=== PATIENT | male | born 1985 | race African-American/Black ===

== ENCOUNTER 2025-03-20 14:26 | Emergency (ER) | payer MEDICAID, SELFPAY ==
--- OUTSIDE RECORDS SUMMARY | 2025-02-08 06:00 | XMS_ITS ---
Author Organization [facility] Address [address] [place] [address] Care Team Providers Care Business Law Professor Name Role Phone Wanda Velez Primary Care Provider Jimi Olson [phone] REASON FOR VISIT routine lab work Social History Sex Assigned At : Social History Observation Description Sex Assigned At Male Encounters Encounter Location Date Provider Diagnosis [address] [place] [address] 02/08/2025 Jimi Olson Plan Of Treatment No Information Progress Notes * Jordan DEMARCODOB:1985 (39 yo M)Acc No.[id number]:02/08/2025 UNLOCKED PROGRESS NOTE Patient: Jordan BENITEZ Provider: Marky Olson APN :1985 A ge:39 Y S ex:Male Date:02/08/2025 Address:[address] [place], [place] [id number] Pcp:Wanda Velez Subjective: * Chief Complaints: * 1 . Routine lab work. * Medical History: Objective: * Vitals: Assessment: Plan: * Treatment: * * Electronic signature of Vignesh Olson on 03/20/2025 at 02:45 PM CDT Sign off status: Pending * Provider: Marky Olson APN Date: 0 02/08/2025 Generated for Bibiana lund/Rory/Yomaira on: 1 02:45 PM CDT
--- OUTSIDE RECORDS SUMMARY | 2025-02-09 08:00 | XMS_ITS ---
Author Organization [facility] Address [address] [place] [address] Care Team Providers Care Buyer Broker Name Role Phone Wanda Velez Primary Care Provider [phone] REASON FOR VISIT CRU Admit Eval Social History Sex Assigned At : Social History Observation Description Sex Assigned At Male Encounters Encounter Location Date Provider Diagnosis [address] [place] [address] 02/09/2025 Wanda Velez Plan Of Treatment No Information Progress Notes * Jordan DEMARCODOB:1985 (39 yo M)Acc No.[id number]:02/09/2025 UNLOCKED PROGRESS NOTE Patient: Blanca TINOCO Jordan Provider: Melody Velez DNP, REBECCA-PRISCILLA, [employer] FORMER :1985 A ge:39 Y S ex:Male Date:02/09/2025 Address:[address] [place], [place] [id number] Subjective: * Chief Complaints: * 1 . CRU Admit Eval. * Medical History: Objective: * Vitals: Assessment: Plan: * Treatment: * * Electronic signature of Valencia Velez on 03/20/2025 at 02:45 PM CDT Sign off status: Pending * Provider: Melody Velez DNP, REBECCA-BC, [employer] FORMER Date: 0 02/09/2025 Generated for Printing/Faxing/eTransmitting on: 1 02:45 PM CDT
--- OUTSIDE RECORDS SUMMARY | 2025-02-10 08:00 | XMS_ITS ---
[facility] Organization [facility] Address [address] [place] [address] Care Team Providers Care Business Risk Analyst Name Role Phone Wanda Velez Primary Care Provider [phone] Jimi Olson [phone] REASON FOR VISIT Establish PCP Social History Sex Assigned At : Social History Observation Description Sex Assigned At Male Encounters Encounter Location Date Provider Diagnosis [place] [address] [facility] [place] [address] 02/10/2025 Jimi Olson Plan Of Treatment No Information Progress Notes * Jordan DEMARCODOB:1985 (39 yo M)Acc No.[id number]:02/10/2025 UNLOCKED PROGRESS NOTE Progress Notes Patient: Jordan BENITEZ Provider: Marky Olson APN :1985 A ge:39 Y S ex:Male Date:02/10/2025 Address:[address] [place], [place] [id number] Pcp:Wanda Velez Subjective: * Chief Complaints: * 1 . Establish PCP. * Medical History: Objective: * Vitals: Assessment: Plan: * Treatment: * * Electronic signature of Vignesh Olson on 03/20/2025 at 02:45 PM CDT Sign off status: Pending * Provider: Marky Olson APN Date: 0 02/10/2025 Generated for Bibiana lund/Rory/Yomaira on: 1 02:45 PM CDT
--- NOTE | ~2025-03-20 | XR_ITS ---
EXAMINATION: XR tibia fibula LT 2V, 03/20/2025 15:30 CDT HISTORY: infection COMPARISON: No comparisons available. Findings: No acute fracture or malalignment. No significant degenerative changes. Soft tissues unremarkable. Impression: No acute fracture or malalignment. Reviewed, dictated and finalized at location P. Impression: No acute fracture or malalignment.
[2025-03-20 14:30] VITALS: BP 142/80; PULSE 128; RESP 18; TEMP 37.1; O2SAT 100
--- NOTE | 2025-03-20 14:40 | ED.GENADULT ---
HPI - General Adult General Chief complaint: Unspecified Stated complaint: I think I have hypothermia Time Seen by Provider: 03/20/25 14:31 History of Present Illness HPI narrative: 39-year-old male presenting to the emergency department with left lower leg redness and pain. Patient states he is homeless and been outside for last 2 months. States he has been having subjective chills and pain in his left leg. Notes that he had some redness and warmth but does not remember any precipitating injury or cut/bug bite. Has been sleeping outside. Does not take any medications but states he has no chronic medical conditions aside from PTSD. Denies any SI/HI this time. Related Data Allergies Allergy/AdvReac Type Severity Reaction Status Date / Time No Known Allergies Allergy Verified 03/20/25 14:45 Review of Systems Review of Systems: As reviewed above in HPI Exam Narrative: GENERAL: [Well-appearing, well-nourished, and in no acute distress.] HEAD: [Normocephalic, atraumatic.] EYES: [PERRLA and EOMI.] ENT: Nares clear, no rhinorrhea or epistaxis. Mucous membranes moist. NECK: Supple. CHEST: [Clear to auscultation. No respiratory distress.] HEART: [Regular rate and rhythm]. No murmur heard. [Normal peripheral pulses.] ABDOMEN: [Soft, nondistended], [nontender], [No rigidity or guarding] EXTREMITIES: Left lower extremity has redness and erythema with tenderness to palpation and some warmth but no induration or abscess formation. No drainage or purulence. No open lesions or wounds. No obvious cuts or bug bites between the digits or the foot. 2+ dorsalis pedis pulse. Full range of motion ambulatory. SKIN: Warm, dry, no rash. NEURO: [No focal deficits]. Alert and oriented [x3.] PSYCH: [Normal mood and affect.] Course Vital Signs Vital signs: Vital Signs Temperature 37.1 C 03/20/25 14:30 Pulse Rate 128 H 03/20/25 14:30 Respiratory Rate 18 03/20/25 14:30 Blood Pressure 142/80 H 03/20/25 14:30 Pulse Oximetry 100 03/20/25 14:30 Oxygen Delivery Room Air 03/20/25 14:30 Temperature 37.1 C 03/20/25 14:30 Pulse Rate 101 H 03/20/25 16:38 Respiratory Rate 18 03/20/25 16:38 Blood Pressure 114/86 03/20/25 16:38 Pulse Oximetry 97 03/20/25 16:38 Oxygen Delivery Room Air 03/20/25 14:30 Medical Decision Making MDM Narrative Medical decision making narrative: 39-year-old male presenting to the emergency department with left lower leg redness and pain. Patient states he is homeless and been outside for last 2 months. States he has been having subjective chills and pain in his left leg. Notes that he had some redness and warmth but does not remember any precipitating injury or cut/bug bite. Has been sleeping outside. Does not take any medications but states he has no chronic medical conditions aside from PTSD. Denies any SI/HI this time. Left lower extremity has redness and erythema with tenderness to palpation and some warmth but no induration or abscess formation. No drainage or purulence. No open lesions or wounds. No obvious cuts or bug bites between the digits or the foot. 2+ dorsalis pedis pulse. Full range of motion ambulatory. Patient is afebrile. Tachycardia 128 but did just walking from outside will recheck this. Does not appear ill or septic appearing. Most likely cellulitis based on exam findings. Given mupirocin and oral Bactrim as well as Tylenol and will re-evaluate. Patient is still tachycardic so blood work was obtained at this time as well as an x-ray of the extremity. He was given fluids and Toradol and re-evaluated. Tachycardia resolved. Vital signs are stable. Kidney function normal. Electrolytes normal. X-ray unremarkable. Patient is safe for discharge with antibiotics prescription and given return precautions. Medical Records Medical records reviewed: Yes I reviewed the external patient's medical records. Vital Signs Vital Signs: Vital Signs Temperature 37.1 C 03/20/25 14:30 Pulse Rate 128 H 03/20/25 14:30 Respiratory Rate 18 03/20/25 14:30 Blood Pressure 142/80 H 03/20/25 14:30 Pulse Oximetry 100 03/20/25 14:30 Oxygen Delivery Room Air 03/20/25 14:30 Temperature 37.1 C 03/20/25 14:30 Pulse Rate 101 H 03/20/25 16:38 Respiratory Rate 18 03/20/25 16:38 Blood Pressure 114/86 10/25/25 16:38 Pulse Oximetry 97 03/20/25 16:38 Oxygen Delivery Room Air 03/20/25 14:30 Lab Data Lab results reviewed: Yes I reviewed the patient's lab results. 03/20/25 15:12 03/20/25 15:12 Labs: Lab Results 03/20/25 Range/Units 15:12 WBC 8.5 (4.5-10.0) K/mm3 RBC 4.54 L (4.6-6.20) M/mm3 Hgb 12.7 L (14.0-18.0) g/dL Hct 37.1 L (42.0-52.0) % MCV 81.7 (80-100) fl MCH 28.0 (26-34) pg MCHC 34.2 (32-36) g/dl RDW 13.1 (11.5-14.5) % Plt Count 241 (150-375) k/mm3 MPV 10.0 (7.4-10.4) fl Immature Gran % (Auto) 0.2 (0-0.5) % Neut % (Auto) 82.7 H (45.5-73.1) % Lymph % (Auto) 8.5 L (18.3-44.2) % [place] % (Auto) 8.3 (2.6-8.5) % Eos % (Auto) 0.1 (0-4.4) % Baso % (Auto) 0.2 (0.2-1.2) % Lymph # (Auto) 0.72 L (0.9-3.2) K/mm3 [place] # (Auto) 0.7 H (0.1-0.6) K/mm3 Eos # (Auto) 0.0 (0-0.3) K/mm3 Baso # (Auto) 0.0 (0.0-0.1) K/mm3 Abs Immat Gran (auto) 0.02 (0.00-0.031) K/mm3 Absolute Neuts (auto) 7.0 H (1.3-6.7) K/mm3 Absolute Nucleated RBC 0.000 (0.0-0.012) K/mm3 Nucleated RBC % 0.0 (0.0-0.2) % Sodium 134 L (137-145) mmol/L Potassium 3.8 (3.4-5.0) mmol/L Chloride 98 (98-107) mmol/L Carbon Dioxide 26 (22-30) mmol/L Anion Gap 10 (4-12) mmol/L BUN 11 (9-20) mg/dL Creatinine 0.82 (0.7-1.3) mg/dL Estim Creat Clear Calc 131 ml/min Estimated GFR > 60 (59 - ) Glucose 95 (65-110) mg/dL Lactic Acid 1.1 (0.7-2.0) mmol/L Calcium 8.6 (8.4-10.2) mg/dL Total Bilirubin 2.8 H (0.2-1.3) mg/dL AST 32 (17-59) U/L ALT 28 (6-50) U/L Alkaline Phosphatase 58 (38-126) U/L Total Protein 7.5 (6.3-8.2) g/dL Albumin 4.1 (3.5-5.1) g/dL Discharge Plan Discharge Clinical Impression: Cellulitis of left leg Patient Disposition: Home Condition: Stable Instructions: Antibiotic Form, Cellulitis (ED) Additional Instructions: You have a skin and soft tissue infection of your left lower extremity consistent with cellulitis. We will treat this with a course of antibiotics both by mouth and topically. Tylenol and ibuprofen for fever and pain control. Complete the antibiotics and follow-up with the primary care provider. Return with emergent concerns. Patient Language: Lebanese Prescriptions: New mupirocin [Centany] 2 % ointment 1 applic topical TID Qty: 15 0RF sulfamethoxazole-trimethoprim [Bactrim DS] 800-160 mg tablet 1 tablet PO Q12H Qty: 14 0RF acetaminophen [Tylenol Extra Strength] 500 mg tablet 1,000 mg PO TID PRN (Reason: pain) Qty: 30 0RF sulfamethoxazole-trimethoprim [Bactrim DS] 800-160 mg tablet 1 tablet PO Q12H Qty: 14 0RF acetaminophen [Tylenol Extra Strength] 500 mg tablet 1,000 mg PO TID PRN (Reason: pain) Qty: 30 0RF mupirocin [Centany] 2 % ointment 1 applic topical TID Qty: 15 0RF Follow-up/Referrals: PHYSICIAN,MOLDER MACHINE TENDER [Primary Care Provider, Internal Medicine] Time of Disposition: 15:44
[2025-03-20] MEDS: ACETAMINOPHEN 500 MG TABLET 1000 MG PO (14:45)
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
[2025-03-20] MEDS: SULFAMETHOXAZOLE/TRIMETHOPRIM 800/160 MG DS TABLET 1 TAB PO (14:46)
[2025-03-20 15:14] VITALS: BP 108/58; PULSE 110; RESP 14; O2SAT 96
[2025-03-20] MEDS: LACTATED RINGERS 1,000 ML 999 ML IV CONT (15:18)
[2025-03-20 15:19] VITALS: PULSE 100
[2025-03-20 15:19] LABS: Hematocrit 37.1 % (42.0-52.0); Hemoglobin 12.7 g/dL (14.0-18.0); Immature Granulocyte Percent A 0.2 % (0-0.5); Lymphocytes Absolute Auto 0.72 K/mm3 (0.9-3.2); Mean Corpuscular HGB Conc 34.2 g/dl (32-36); Mean Corpuscular Hemoglobin 28.0 pg (26-34); Mean Corpuscular Volume 81.7 fl (80-100); Nucleated Red Blood Cells Absolute Auto 0.000 K/mm3 (0.0-0.012); Nucleated Red Blood Cells Perc 0.0 % (0.0-0.2); Platelet Count Result 241 k/mm3 (150-375); Red Blood Count 4.54 M/mm3 (4.6-6.20); White Blood Count 8.5 K/mm3 (4.5-10.0)
[2025-03-20] MEDS: MUPIROCIN 2% OINT 22 GM TUBE 1 APPLIC TOPICAL (15:20)
[2025-03-20] MEDS: KETOROLAC 15 MG/ML VIAL (*BKC) IV PUSH (15:21)
[2025-03-20 15:42] LABS: Alanine Aminotransferase 28 U/L (6-50); Albumin Level 4.1 g/dL (3.5-5.1); Alkaline Phosphatase 58 U/L (38-126); Anion Gap 10 mmol/L (4-12); Aspartate Amino Transferase 32 U/L (17-59); Bilirubin,Total 2.8 mg/dL (0.2-1.3); Blood Urea Nitrogen 11 mg/dL (9-20); Calcium 8.6 mg/dL (8.4-10.2); Carbon Dioxide 26 mmol/L (22-30); Chloride 98 mmol/L (98-107); Estimated CRCL calculation 131 ml/min; Estimated Glomerular Filt Rate > 60; Glucose 95 mg/dL (65-110); Potassium 3.8 mmol/L (3.4-5.0); Sodium 134 mmol/L (137-145); Total Protein 7.5 g/dL (6.3-8.2)
[2025-03-20 16:38] VITALS: BP 114/86; PULSE 101; RESP 18; O2SAT 97
--- NOTE | 2025-03-22 13:05 | PCCCNOTE ---
Pt. was in the ED waiting room since D/C. He is attempting to get into [facility] or [facility]. I called [facility], but they have no beds. He spoke with Anahi Marquez and they are supposed to come and pick him up by 1400. Pt was given a list of resources for homeless and food pantries. He was also given a care bag.
== END 2025-03-20 17:00 | disposition home or self-care (01) ==
LOC: ANHED 14:43
PROVIDERS: Emergency Provider Student in an Organized Health Care Education/Training Program
DX: L03.116 Cellulitis of left lower limb (principal)
CPT/HCPCS: 36415; 73590; 80053; 83605; 85025; 96361; 96374; 99284; A9270; J1885; J7120

== ENCOUNTER 2025-03-21 07:54 | Emergency (ER) | payer MEDICAID, SELFPAY ==
--- NOTE | ~2025-03-21 | US_ITS ---
LEFT LOWER EXTREMITY VENOUS DUPLEX Clinical History: swelling COMPARISON: None TECHNIQUE: Grayscale, color, duplex/spectral Doppler sonography left leg FINDINGS: Left leg common femoral, femoral, popliteal, and calf veins compressible and color Doppler patent. Normal augmentation with distal compression. No internal echoes. IMPRESSION: 1. No left leg DVT. Reviewed, dictated and finalized at location R. IMPRESSION: 1. No left leg DVT.
[2025-03-21 07:58] VITALS: BP 132/75; PULSE 86; RESP 20; TEMP 36.9; O2SAT 100
[2025-03-21] MEDS: SULFAMETHOXAZOLE/TRIMETHOPRIM 800/160 MG DS TABLET 1 TAB PO (08:23)
--- NOTE | 2025-03-21 08:23 | ED.GENADULT ---
HPI - General Adult General Chief complaint: Extremity Problem,Nontraumatic Stated complaint: my legs swelling, I'm cold Time Seen by Provider: 03/21/25 08:04 History of Present Illness HPI narrative: Patient is a 39-year-old male who presents ER because he is old and his leg is swollen. Patient is homeless and was evaluated in the ER yesterday. He had normal lab work and was diagnosed with cellulitis. He was provided a dose of Bactrim and sent on his way. Patient reports he has not yet filled his medication. He would like something to eat. No chest pain or shortness of breath. No nausea or vomiting. Related Data Allergies Allergy/AdvReac Type Severity Reaction Status Date / Time No Known Allergies Allergy Verified 03/21/25 08:04 Review of Systems Review of Systems: All systems reviewed & are unremarkable except as noted in HPI and below Constitutional: Constitutional: Reports no additional constitutional complaints Cardiovascular: Cardiovascular: Reports no additional cardiovascular complaints Respiratory: Respiratory: Reports no additional respiratory complaints Gastrointestinal: Gastrointestinal: Reports no additional gastrointestinal complaints Integumentary/Breasts: Skin/Breast: Reports system reviewed and no additional complaints, except as docu PMFSH Past Medical History Medical History (Updated 03/21/25 @ 10:14 by Shar Oleary MD) Healthy adult male Surgical History Surgical History (Updated 03/21/25 @ 08:24 by Shar Oleary MD) No pertinent past surgical history Exam Narrative: GENERAL: Well-appearing, well-nourished, and in no acute distress. HEAD: Normocephalic, atraumatic. ENT: Mucous membranes moist. CHEST: Clear to auscultation. No respiratory distress. HEART: Regular rate and rhythm. Normal peripheral pulses. ABDOMEN: Soft, nontender, nondistended. EXTREMITIES: Normal range of motion. Left calf larger than the right, likely related to infection. SKIN: Warm, dry, mild warmth and erythema of left lower extremity with some blistering at the sock line where there is yellow drainage. No fluctuant abscess. NEURO: Alert and oriented x3. PSYCH: Normal mood and affect. Course Course Emergency Course: Patient resting comfortably. Informed of results. He has received oral antibiotics and some food. No DVT. 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 Vital Signs Vital signs: Vital Signs Temperature 98.5 F 03/21/25 07:58 Pulse Rate 86 03/21/25 07:58 Respiratory Rate 20 03/21/25 07:58 Blood Pressure 132/75 03/21/25 07:58 Pulse Oximetry 100 03/21/25 07:58 Oxygen Delivery Room Air 03/21/25 07:58 Temperature 98.5 F 03/21/25 07:58 Pulse Rate 86 03/21/25 07:58 Respiratory Rate 20 03/21/25 07:58 Blood Pressure 132/75 03/21/25 07:58 Pulse Oximetry 100 03/21/25 07:58 Oxygen Delivery Room Air 03/21/25 07:58 Medical Decision Making Differential Diagnosis Differential Diagnosis: DVT, cellulitis, abscess, malingering Vital Signs Vital Signs: Vital Signs Temperature 98.5 F 03/21/25 07:58 Pulse Rate 86 03/21/25 07:58 Respiratory Rate 20 03/21/25 07:58 Blood Pressure 132/75 03/21/25 07:58 Pulse Oximetry 100 03/21/25 07:58 Oxygen Delivery Room Air 03/21/25 07:58 Temperature 98.5 F 03/21/25 07:58 Pulse Rate 86 03/21/25 07:58 Respiratory Rate 20 03/21/25 07:58 Blood Pressure 132/75 03/21/25 07:58 Pulse Oximetry 100 03/21/25 07:58 Oxygen Delivery Room Air 03/21/25 07:58 Imaging Data Radiologist's impression: ITS Impressions Venous Doppler Study 03/21/25 10:05 IMPRESSION: 1. No left leg DVT. Discharge Plan Discharge Clinical Impression: Cellulitis Patient Disposition: Home Condition: Stable Instructions: Antibiotic Form, Cellulitis (ED) Additional Instructions: Return ER if you have chest pain with shortness of breath, he can not keep down food water, you lose consciousness, or you have additional concerns. Patient Language: Cymraes Prescriptions: No Action mupirocin [Centany] 2 % ointment 1 applic topical TID Qty: 15 0RF sulfamethoxazole-trimethoprim [Bactrim DS] 800-160 mg tablet 1 tablet PO Q12H Qty: 14 0RF acetaminophen [Tylenol Extra Strength] 500 mg tablet 1,000 mg PO TID PRN (Reason: pain) Qty: 30 0RF sulfamethoxazole-trimethoprim [Bactrim DS] 800-160 mg tablet 1 tablet PO Q12H Qty: 14 0RF acetaminophen [Tylenol Extra Strength] 500 mg tablet 1,000 mg PO TID PRN (Reason: pain) Qty: 30 0RF mupirocin [Centany] 2 % ointment 1 applic topical TID Qty: 15 0RF Follow-up/Referrals: Oracio Rizzo MD [Physician, Family Practice] - 1 Week PHYSICIAN,PLANE RUNNER [Primary Care Provider, Internal Medicine]
[2025-03-21 10:20] VITALS: BP 102/63; PULSE 77; RESP 18; O2SAT 100
== END 2025-03-21 10:23 | disposition home or self-care (01) ==
PROVIDERS: Emergency Provider Emergency Medicine
DX: L03.116 Cellulitis of left lower limb (principal); Z59.00 Homelessness unspecified
CPT/HCPCS: 93971; 99284; A9270